=== PATIENT | male | born 2000 | race Asian ===

== ENCOUNTER 2022-07-31 13:37 | Emergency (ER) | payer OTHER, MEDICAID ==
[2022-07-31 13:43] VITALS: BP 138/93
--- NOTE | 2022-07-31 13:59 | ED Physician Documentation ---
PD HPI OPHTHO - Stated complaint Stated Complaint: FO L EYE - Chief complaint Chief Complaint: Heent - History obtained from History obtained from: Patient - History of Present Illness Timing - onset: How many hours ago (2) Timing - duration: Hours (2) Timing - details: Abrupt onset Pain level max: 7 Pain level now: 6 Location: Left Quality / character: Aching Associated symptoms: Redness, Tearing, FB sensation Contributing factors: FB (states at work today at [employer] and felt something go into his eye. States flushed x 45 mins. Still feels something in the eye.), Work related. No: Wears glasses, Wears contacts Review of Systems Constitutional: denies: Fever, Chills Respiratory: denies: Cough GI: denies: Vomiting, Diarrhea PD PAST MEDICAL HISTORY - Past Medical History Past Medical History: No Cardiovascular: None Respiratory: None Neuro: None Endocrine/Autoimmune: None GI: None : None HEENT: None Psych: None Musculoskeletal: None Derm: None - Past Surgical History Past Surgical History: Yes Ortho: Other - Present Medications Home Medications: Ambulatory Orders Medication Instructions Recorded Confirmed Polymyxin B/Trimeth Ophth Drop 1 drops LEFTEYE Q3H 7 Days #1 each 07/31/22 [Polytrim Ophth Drops] - Allergies Allergies/Adverse Reactions: Allergies Allergy/AdvReac Type Severity Reaction Status Date / Time No Known Drug Allergies Allergy Verified 07/31/22 13:40 - Social History Does the pt smoke?: No Smoking Status: Never smoker Does the pt drink ETOH?: Yes Does the pt have substance abuse?: Yes - Immunizations Immunizations are current?: Yes PD ED PE NORMAL - Vitals Vital signs reviewed: Yes - General General: Alert and oriented X 3 - HEENT HEENT: Moist mucous membranes, Other (L eye - conjunctival injection. tearing. eyelids everted. no FB seen. small corneal abrasion fluoroscein uptake superior cornea.) - Neck Neck: Supple, no meningeal sign - Respiratory Respiratory: No respiratory distress - Derm Derm: Warm and dry - Neuro Neuro: Alert and oriented X 3 Results - Vitals Vitals: Vital Signs - 24 hr 07/31/22 13:41 Temperature 36.7 C Heart Rate 75 Respiratory 18 Rate Blood Pressure 138/93 H O2 Saturation 96 Oxygen O2 Source Room air PD MEDICAL DECISION MAKING - ED course Complexity details: considered differential, d/w patient ED course: Patient with a small corneal abrasion left eye. Symptoms resolved with proparacaine. Small fluorescein uptake. No foreign bodies. Eyelids everted. The eye had been well irrigated prior to arrival. Will place on Polytrim ophthalmic and have him follow-up with ophthalmology if he fails to improve as expected. Patient counseled regarding signs and symptoms for which I believe and urgent re-evaluation would be necessary. Patient with good understanding of and agreement to plan and is comfortable going home at this time This document was made in part using voice recognition software. While efforts are made to proofread this document, sound alike and grammatical errors may occur. Departure - Departure Disposition: 01 Home, Self Care Clinical Impression: Corneal abrasion Qualifiers: Encounter type: initial encounter Laterality: left Qualified Code(s): S05.02XA - Injury of conjunctiva and corneal abrasion without foreign body, left eye, initial encounter Condition: Good Instructions: ED Eye Injury Corneal Abrasion Follow-Up: your,doctor in 1 week [Other] Estiven Kee MD [Provider Admit Priv/Credential] - Prescriptions: Polymyxin B/Trimeth Ophth Drop [Polytrim Ophth Drops] 1 drops LEFTEYE Q3H 7 Days #1 each Comments: Your prescription was sent to the [facility] pharmacy. Use the antibiotic drops as prescribed. This will usually heal quickly within 1 to 2 days. Cool compresses on your eyelid may help as well. Limiting light and screen exposure may help to. Return if you worsen. If you are still having symptoms in 2 to 3 days, follow-up with ophthalmology. Forms: Activity restrictions
== END 2022-07-31 14:03 | disposition home or self-care (01) ==
LOC: ED 13:37
DX: S05.02XA Injury of conjunctiva and corneal abrasion without foreign body, left eye, initial encounter (principal); X58.XXXA Exposure to other specified factors, initial encounter; Y99.0 Civilian activity done for income or pay
CPT/HCPCS: 1040M; 99282

== ENCOUNTER 2024-04-15 22:53 | Outpatient (CLI) | payer MEDICAID | END 2024-04-15 23:59 | disposition critical access hospital (66) | LOC: EMS 22:53 | DX: R10.9 Unspecified abdominal pain (principal) | CPT/HCPCS: A0425; A0429; A0999 ==

== ENCOUNTER 2024-04-15 23:02 | Emergency (ER) | payer MEDICAID ==
[2024-04-15 23:36] LABS: BASOPHILS % (AUTO) 0.4 %; EOSINOPHILS # (AUTO) 0.3 10^3/uL (0.0-0.7); EOSINOPHILS % (AUTO) 3.2 %; HCT - HEMATOCRIT 36.9 % (42.0-52.0); HGB - HEMOGLOBIN 11.9 g/dL (14.0-18.0); LYMPHOCYTES # (AUTO) 2.5 10^3/uL (1.5-3.5); LYMPHOCYTES % (AUTO) 25.3 %; MEAN CORPUSCULAR HEMOGLOBIN 28.7 pg (27.0-31.0); MEAN CORPUSCULAR HGB CONC 32.2 g/dL (32.0-36.0); MEAN CORPUSCULAR VOLUME 88.9 fL (80.0-94.0); MEAN PLATELET VOLUME 9.4 fL (7.4-11.4); MONOCYTES # (AUTO) 0.8 10^3/uL (0.0-1.0); MONOCYTES % (AUTO) 7.9 %; NEUTROPHILS # (AUTO) 6.1 10^3/uL (1.5-6.6); PLT - PLATELET COUNT 441 10^3/uL (130-450); RED BLOOD COUNT 4.15 10^6/uL (4.70-6.10); RED CELL DISTRIBUTION WIDTH 12.6 % (12.0-15.0); WHITE BLOOD COUNT 9.7 x10^3/uL (4.8-10.8)
[2024-04-15 23:55] LABS: ALBUMIN 3.7 g/dL (3.2-5.5); ALBUMIN/GLOBULIN RATIO 1.1 (1.0-2.2); BILIRUBIN,TOTAL 0.2 mg/dL (0.2-1.0); CALCIUM 9.5 mg/dL (8.5-10.3); CREATININE 0.8 mg/dL (0.6-1.3); POTASSIUM 3.5 mmol/L (3.5-4.5); TOTAL PROTEIN 7.1 g/dL (6.4-8.9)
[2024-04-16] MEDS ORDERED: KETOROLAC 15 MG/ML VIAL IVP STA (00:16)
--- NOTE | 2024-04-16 00:35 | ED Physician Documentation ---
History of Present Illness - Stated complaint Stated Complaint: R UPPER ABD PX - Chief complaint Chief Complaint: Abd Pain - History obtained from History obtained from: Patient - Additonal information Additional information: 24yM With past medical history of fentanyl abuse presents withDiffuse abdominal pain in the upper abdomen starting today as well as nausea. Denies fever, urinary symptoms, back pain, vomiting, diarrhea. He did smoke fentanyl today. Patient however states that he is in fentanyl withdrawal. PD PAST MEDICAL HISTORY - Past Medical History Cardiovascular: None Respiratory: None Neuro: None Endocrine/Autoimmune: None GI: None : None HEENT: None Psych: None Musculoskeletal: None Derm: None - Past Surgical History Past Surgical History: Yes Ortho: Other - Present Medications Home Medications: Ambulatory Orders Medication Instructions Recorded Confirmed Buprenorphine HCl/Naloxone HCl 1 tab SL DAILY #10 tablet 04/16/24 [Suboxone 8-2 mg Tab] - Allergies Allergies/Adverse Reactions: Allergies Allergy/AdvReac Type Severity Reaction Status Date / Time No Known Drug Allergies Allergy Verified 04/15/24 23:15 - Social History Does the pt smoke?: No Smoking Status: Never smoker Does the pt drink ETOH?: Yes Does the pt have substance abuse?: Yes - Immunizations Immunizations are current?: Yes PD ED PE NORMAL - Vitals Vital signs reviewed: Yes - General General: Alert and oriented X 3, No acute distress, Well developed/nourished, Other (Initially upon my exam he is sleeping quietly in bed. Upon waking he is in no acute distress.) - HEENT HEENT: Atraumatic, PERRL, EOMI - Neck Neck: Supple, no meningeal sign - Cardiac Cardiac: RRR - Respiratory Respiratory: No respiratory distress, Clear bilaterally - Abdomen Abdomen: Non tender, Non distended - Derm Derm: Normal color, Warm and dry - Extremities Extremities: No deformity - Neuro Neuro: No motor deficit, No sensory deficit Results - Vitals Vitals: Vital Signs - 24 hr 04/15/24 23:12 Temperature 36.6 C Heart Rate 76 Respiratory 16 Rate Blood Pressure 139/66 H O2 Saturation 98 Oxygen O2 Source Room air - Labs Labs: Laboratory Tests 04/15/24 04/15/24 23:30 23:30 WBC 9.7 RBC 4.15 L Hgb 11.9 L Hct 36.9 L MCV 88.9 MCH 28.7 MCHC 32.2 RDW 12.6 Plt Count 441 MPV 9.4 Neut # (Auto) 6.1 Lymph # (Auto) 2.5 Randolph # (Auto) 0.8 Eos # (Auto) 0.3 Baso # (Auto) 0.0 Absolute Nucleated RBC 0.00 Nucleated RBC % 0.0 Sodium 143 Potassium 3.5 Chloride 108 Carbon Dioxide 28 Anion Gap 7.0 BUN 11 Creatinine 0.8 Estimated GFR (MDRD) 117 Glucose 143 H Calcium 9.5 Total Bilirubin 0.2 AST 17 ALT 16 Alkaline Phosphatase 66 Total Protein 7.1 Albumin 3.7 Globulin 3.4 Albumin/Globulin Ratio 1.1 Lipase 18 PD Medical Decision Making - ED course ED course: 24-year-old man presents with abdominal pain and nausea, stating he is in fentanyl withdrawal. Patient is well-appearing and I was able to examine him with benign abdomen. His lab work, vital signs are also normal. Plan to follow-up outpatient with primary care provider. Suboxone prescription granted upon request. Departure - Departure Disposition: 01 Home, Self Care Clinical Impression: Opiate withdrawal Condition: Stable Instructions: ED Narcotic Abuse Prescriptions: Buprenorphine HCl/Naloxone HCl [Suboxone 8-2 mg Tab] 1 tab SL DAILY #10 tablet Comments: You were seen in the emergency department for Medical evaluation. Prescription sent to [facility] pharmacy. Please follow-up with your primary care provider and return to the emergency department if you have any new or worsening symptoms or other concerns. Forms: PCP List
[2024-04-16] MEDS: ONDANSETRON ODT 4 MG TABLET TL STA (00:38)
[2024-04-16] MEDS: BUPRENORPHINE/NALOXONE 8-2 MG TAB SL STA (00:38)
[2024-04-16 01:53] VITALS: BP 136/78; O2SAT 95
== END 2024-04-16 01:50 | disposition home or self-care (01) ==
LOC: EDUNIT# → ED 23:02
DX: F11.13 Opioid abuse with withdrawal (principal)
CPT/HCPCS: 36415; 80053; 83690; 85025; 99283; 99284; Q0162